=== PATIENT | female | born 1990 | race American Indian/Alaskan Native ===

== ENCOUNTER 2017-05-18 09:13 | Emergency (ER) | payer SELFPAY ==
[2017-05-18 09:20] VITALS: BP 137/57
--- NOTE | 2017-05-18 12:23 | Emergency Department Report ---
ED ENT HPI - General Chief complaint: Sore Throat Stated complaint: SIDE OF NECK SWOLLEN Time Seen by Provider: 05/18/17 11:31 Source: patient Mode of arrival: Ambulatory Limitations: No Limitations - History of Present Illness Initial comments: 26-year-old female past medical history none presents with complaint of left- sided cheek discomfort for 4-5 days. Patient states that discomfort is at angle of her jaw. Denies any trauma denies any fever or chills. No muffled voice no trismus no drooling noted. No audible wheezing or stridor. Slight discomfort. Patient has been taking Tylenol with some relief of her pain. Denies any difficulty breathing speaking in full sentences. went to a dentist offfice and was told that she may have sialolithiasis or parotitis. Patient states she came to the ED today for evaluation Onset/Timin -: days(s) Location: tooth # Severity: moderate Quality: aching Consistency: constant Improves with: none Worsens with: none - Related Data Previous Rx's Medication Instructions Recorded Last Taken Type Amoxicillin/Potassium Clav 1 each PO BID #20 tablet 05/18/17 Unknown Rx [Augmentin 875-125 Tablet] Ibuprofen [Motrin] 800 mg PO Q8HR PRN #30 tablet 05/18/17 Unknown Rx metroNIDAZOLE [Flagyl TAB] 500 mg PO Q8HR #21 tablet 05/18/17 Unknown Rx Allergies Allergy/AdvReac Type Severity Reaction Status Date / Time No Known Allergies Allergy Unverified 05/18/17 09:20 ED Dental HPI - General Chief complaint: Sore Throat Stated complaint: SIDE OF NECK SWOLLEN Time Seen by Provider: 05/18/17 11:31 Source: patient Mode of arrival: Ambulatory Limitations: No Limitations - Related Data Previous Rx's Medication Instructions Recorded Last Taken Type Amoxicillin/Potassium Clav 1 each PO BID #20 tablet 05/18/17 Unknown Rx [Augmentin 875-125 Tablet] Ibuprofen [Motrin] 800 mg PO Q8HR PRN #30 tablet 05/18/17 Unknown Rx metroNIDAZOLE [Flagyl TAB] 500 mg PO Q8HR #21 tablet 05/18/17 Unknown Rx Allergies Allergy/AdvReac Type Severity Reaction Status Date / Time No Known Allergies Allergy Unverified 05/18/17 09:20 ED Review of Systems ROS: Stated complaint: SIDE OF NECK SWOLLEN Other details as noted in HPI Constitutional: denies: chills, fever Eyes: denies: eye pain, eye discharge, vision change ENT: as per HPI. denies: ear pain, throat pain Respiratory: denies: cough, shortness of breath, wheezing Cardiovascular: denies: chest pain, palpitations Endocrine: no symptoms reported Gastrointestinal: denies: abdominal pain, nausea, diarrhea Genitourinary: denies: urgency, dysuria, discharge Musculoskeletal: denies: back pain, joint swelling, arthralgia Skin: denies: rash, lesions Neurological: denies: headache, weakness, paresthesias Psychiatric: denies: anxiety, depression Hematological/Lymphatic: denies: easy bleeding, easy bruising ED Past Medical Hx - Past Medical History Previous Medical History?: No - Surgical History Past Surgical History?: No - Social History Smoking Status: Current Every Day Smoker Substance Use Type: None - Medications Home Medications: Home Medications Medication Instructions Recorded Confirmed Last Taken Type Amoxicillin/Potassium Clav 1 each PO BID #20 tablet 05/18/17 Unknown Rx [Augmentin 875-125 Tablet] Ibuprofen [Motrin] 800 mg PO Q8HR PRN #30 tablet 05/18/17 Unknown Rx metroNIDAZOLE [Flagyl TAB] 500 mg PO Q8HR #21 tablet 05/18/17 Unknown Rx ED Physical Exam - General Limitations: No Limitations General appearance: alert, in no apparent distress - Head Head exam: Present: atraumatic, normocephalic - Eye Eye exam: Present: normal appearance, PERRL, EOMI - ENT ENT exam: Present: mucous membranes moist - Expanded ENT Exam Expanded Mouth exam: Present: normal external inspection Teeth exam: Present: normal inspection Throat exam: Positive: normal inspection (oropharynx is open and patent no [employer] no intra-pharyngeal or oropharyngeal swelling or edema or exudates on tonsils) - Neck Neck exam: Present: normal inspection, tenderness (left-sided) - Respiratory Respiratory exam: Present: normal lung sounds bilaterally. Absent: respiratory distress - Cardiovascular Cardiovascular Exam: Present: regular rate, normal rhythm. Absent: systolic murmur, diastolic murmur, rubs, gallop - GI/Abdominal GI/Abdominal exam: Present: soft, normal bowel sounds - Extremities Exam Extremities exam: Present: normal inspection - Back Exam Back exam: Present: normal inspection - Neurological Exam Neurological exam: Present: alert, oriented X3 - Psychiatric Psychiatric exam: Present: normal affect, normal mood - Skin Skin exam: Present: warm, dry, intact, normal color. Absent: rash ED Course Vital Signs 05/18/17 09:17 Temperature 98.9 F Pulse Rate 88 Respiratory 22 Rate Blood Pressure 137/57 O2 Sat by Pulse 99 Oximetry ED Medical Decision Making - Medical Decision Making A/P: Sialolithiasis/early parotitis 1- minimal to no swelling, no palpable intraoral or external fluctuance along cheek no palpable stone. She reports no fever or chills 2- sialogouges, sour candy lozenges, Motrin 800 when necessary, 3- Augmentin 10 day course+ metronidazole for possible pseudomonas coverage. I referred to management of parotitis on [email or web address]_[email or web address]_[email or web address] 4- follow-up with ENT. I advised patient to return to the ED for any significant facial swelling fever or chills inability to open her mouth difficulty swallowing solids and liquids or any respiratory distress. Patient does not have these symptoms at this time. Patient agreed to these parameters. Vital signs stable for discharge. Critical care attestation.: If time is entered above; I have spent that time in minutes in the direct care of this critically ill patient, excluding procedure time. ED Disposition Clinical Impression: Acute parotitis, Sialoadenitis Disposition: - TO HOME OR SELFCARE Is pt being admited?: No Does the pt Need Aspirin: No Condition: Stable Instructions: Sialoadenitis (ED), Parotid Duct Obstruction (ED) Prescriptions: Amoxicillin/Potassium Clav [Augmentin 875-125 Tablet] 1 each PO BID #20 tablet Ibuprofen [Motrin] 800 mg PO Q8HR PRN #30 tablet PRN Reason: Pain metroNIDAZOLE [Flagyl TAB] 500 mg PO Q8HR #21 tablet [facility]-5 [facility] [Provider Group] - 3-5 Days Forms: Work/School Release Form(ED) Time of Disposition: 12:23
== END 2017-05-18 12:33 | disposition home or self-care (01) ==
LOC: ED 09:13
DX: K11.21 Acute sialoadenitis (principal); F17.200 Nicotine dependence, unspecified, uncomplicated
CPT/HCPCS: 99282